=== PATIENT | female | born 1995 | race Caucasian/White ===

== ENCOUNTER 2020-07-05 08:43 | Emergency (ER) | payer MEDICAID ==
[~2020-07-05] VITALS: Ht 160 cm; Wt 58.5 kg
[2020-07-05] MEDS ORDERED: SODIUM CHLORIDE 0.9% 1,000 ML IV ONE ×2 (09:03)
[2020-07-05] MEDS ORDERED: ONDANSETRON HCL 4 MG/2 ML VIAL IV ONE (09:15)
[2020-07-05 09:17] LABS: Basophils # (auto) 0 10 ^3/uL (0-0.2); Basophils % (auto) 0.3 % (0.0-2.0); Eosinophils # (auto) 0.1 10 ^3/uL (0-0.8); Eosinophils % (auto) 0.7 % (0.0-7.0); Hematocrit 41.7 % (36.0-46.0); Hemoglobin 14.5 g/dL (12.2-16.2); Lymphocytes # (auto) 1.4 10 ^3/uL (0.4-5.4); Lymphocytes % (auto) 13.6 % (10.0-50.0); Mean Corpuscular Hemoglobin 33.2 pg (28.0-32.0); Mean Corpuscular Hgb Conc. 34.7 g/dL (32.0-36.0); Mean Corpuscular Volume 95.7 fL (80.0-100.0); Monocytes % (auto) 9.9 % (0.0-12.0); Neutrophils # (auto) 7.6 10 ^3/uL (1.6-8.6); Neutrophils % (auto) 75.5 % (37.0-80.0); Nucleated Red Blood Cells % 0.1 %; Platelet Count (auto) 335 10^3/uL (140-450); Red Blood Cells 4.36 10^6/uL (4.0-5.20); White Blood Cell 10.1 10^3/uL (4.4-10.8)
[2020-07-05 09:39] LABS: Albumin 3.1 g/dL (3.4-5.0); BUN/Creatinine Ratio 3.5; Calcium 9.3 mg/dL (8.5-10.1)
[2020-07-05 09:42] LABS: Urine Bacteria MANY /hpf (None Seen); Urine Blood Negative /uL (Negative); Urine Specific Gravity 1.004 (1.001-1.035); Urine WBC 16 /hpf (0 - 5)
[2020-07-05 09:42] LABS: Bilirubin, Total 0.5 mg/dL (0.2-1.0); Total Protein 7.9 g/dL (6.4-8.2)
[2020-07-05 09:48] LABS: Potassium 2.2 mmol/L (3.5-5.1)
[2020-07-05] MEDS ORDERED: cefTRIAXone 1GM/50ML D5W 50 ML IV ONE (10:00)
[2020-07-05] MEDS ORDERED: POTASSIUM CHLORIDE 40 MEQ, LIDOCAINE 1% (LOCAL ANESTH.) 4 ML in SODIUM CHL 0.9% 100 ML IV ONE (10:00)
[2020-07-05] MEDS ORDERED: POTASSIUM EFFERVESENT TAB 25 MEQ PO ONE ×2 (10:00→13:45)
[2020-07-05 15:00] VITALS: BP 107/59
== END 2020-07-05 17:47 | disposition other institution (70) ==
LOC: ER 08:43
DX: R11.2 Nausea with vomiting, unspecified (principal); E86.0 Dehydration; E87.6 Hypokalemia; N39.0 Urinary tract infection, site not specified
CPT/HCPCS: 36415; 80053; 81001; 84132; 85025; 96361; 96365; 96368; 96375; 99285; J0696; J2001; J2405; J3480; 96367